=== PATIENT | male | born 1955 | race Caucasian/White ===

== ENCOUNTER 2016-11-23 21:02 | Emergency (ER) | payer BC ==
[2016-11-23 16:42] LABS: BASOPHILS 0.6 %; BASOPHILS ABSOLUTE 0.05 10/3/uL (0.0-0.16); HEMATOCRIT 42.1 % (40.0-51.0); HEMOGLOBIN 14.7 g/dL (13.6-17.8); IMMATURE GRANULOCYTES 0.2 %; IMMATURE GRANULOCYTES ABSOLUTE 0.02 10/3/uL (0.0-0.11); LYMPHOCYTES 26.2 %; LYMPHOCYTES ABSOLUTE 2.29 10/3/uL (0.67-4.30); MEAN CORPUS HGB CONC 34.9 g/dL (32.0-36.0); MEAN CORPUSCULAR HEMOGLOB 33.9 pg (26.0-34.0); MEAN CORPUSCULAR VOLUME 97.2 fL (80-100); MONOCYTES 10.1 %; MONOCYTES ABSOLUTE 0.88 10/3/uL (0.21-1.20); NEUTROPHILS 54.9 %; NEUTROPHILS ABSOLUTE 4.81 10/3/uL (2.02-8.40); PLATELET COUNT 207 10/3/uL (150-400); RBC DISTRIBUTION WIDTH 12.7 % (12.0-16.0); RED CELL COUNT 4.33 10/6/uL (4.7-6.1)
[2016-11-23 16:43] LABS: ER CBC TAT 0 Hrs 09 Mins; MANUAL DIFF NO %; WHITE BLOOD CELLS 8.8 10/3/uL (4.5-10.5)
[2016-11-23 16:49] LABS: INTERNATIONAL NORMAL RATI 1.1 UNITS (-); PROTIME (NOT ORD) 14.5 SEC (12.0-14.5)
[2016-11-23 17:01] LABS: BUN (BLOOD UREA NITROGEN) 15 MG/DL (6-23); CALCIUM, SERUM 9.4 MG/DL (8.5-10.4); CHEST PAIN PROFILE TAT 0 Hrs 27 Mins; CHLORIDE, SERUM 108 MMOL/L (96-112); CO2 (CARBON DIOXIDE) 24 MMOL/L (24-34); CREATININE 0.88 MG/DL (0.70-1.30); GFR AFRICAN AMERICAN 107 ML/MIN (>=60); GFR NON AFRICAN AMERICAN 92 ML/MIN (>=60); GLUCOSE, SERUM 102 MG/DL (60-99); SODIUM, SERUM 142 MMOL/L (135-148); TROPONIN I <0.02 NG/ML (<0.05)
[~2016-11-23 21:02] MED LIST: ACET500CAP PO; ADVAIR250 INH; ASAB PO; ASMANEX 30110 MCG IN; ATROVENTUD INH; CEFT5; COMBIVENT INH; COREG12; COREG12 PO; COREG25 PO; DUONEB INH; FENESIN IR400 MG PO; HYDROCORT12 TOP; LEVAQUIN750 MG PO; LISINOPRIL; LOP100 PO; METOPROLOL; MEXILETINE PO; MEXILETINE150 MG PO; MEXITIL 150 MG150 MG PO; MUCINEX D1 TA1 PO; MUCINEX600 MG PO; NITROQUICK0.4 MG SL; NITROSTAT0.4 MG SL; P10 PO; P20 PO; PLAVIX; PLAVIX PO; PRILOSEC OTC20 MG PO; PRIN10 PO; PRIN20 PO; PRIN5; PRIN5 PO; PROTONIX PO; PROVENTSOL INH; SPIRO25 PO; STERAPRED DS10 MG PO; SYMBICORT 160/41 INH INH; T PO; VICODINTAB PO; ZITH250 PO; ZITHROMAX500 MG PO; ZOCOR; ZOCOR20 PO; ZOCOR40 PO
[2016-11-23 21:25] LABS: TROPONIN I <0.02 NG/ML (<0.05)
[2016-11-23 21:48] LABS: INFLUENZA A SCREEN NEGATIVE (NEGATIVE); INFLUENZA B SCREEN NEGATIVE (NEGATIVE)
[2016-11-23 22:08] LABS: PROCALCITONIN < 0.05 ng/mL (<0.5)
[2017-01-12] MEDS ORDERED: COREG12 PO (16:14)
[2017-01-12] MEDS ORDERED: ZESTRIL5 MG PO (16:14)
[2017-01-12] MEDS ORDERED: SPIRO25 PO (16:14)
[2017-01-12] MEDS ORDERED: ADVAIR250 INH (16:15)
[2017-01-12] MEDS ORDERED: ASAB PO (16:15)
[2017-01-12] MEDS ORDERED: ZOCOR40 PO (16:15)
[2017-01-12] MEDS ORDERED: NITROSTAT0.4 MG SL (16:16)
[2017-01-12] MEDS ORDERED: DUONEB INH (16:16)
[2017-01-12] MEDS ORDERED: MEXITIL 150 MG150 MG PO (16:16)
[2017-01-12] MEDS ORDERED: PLAVIX PO (16:17)
[2017-01-12] MEDS ORDERED: MUCINEX600 MG PO (16:17)
== END 2016-11-23 22:31 | disposition home or self-care (01) ==
LOC: ER 21:02
PROVIDERS: Hospitalist; Nurse Practitioner
DX: J44.1 Chronic obstructive pulmonary disease with (acute) exacerbation (principal); J06.9 Acute upper respiratory infection, unspecified; I25.2 Old myocardial infarction; I25.5 Ischemic cardiomyopathy; Z87.01 Personal history of pneumonia (recurrent); Z95.810 Presence of automatic (implantable) cardiac defibrillator; Z95.5 Presence of coronary angioplasty implant and graft; Z86.73 Personal history of transient ischemic attack (TIA), and cerebral infarction without residual deficits; Z87.891 Personal history of nicotine dependence; Z88.1 Allergy status to other antibiotic agents; Z79.82 Long term (current) use of aspirin; Z79.52 Long term (current) use of systemic steroids; Z79.899 Other long term (current) drug therapy
CPT/HCPCS: 71020; 80048; 83605; 83735; 83880; 84145; 84484; 85025; 85610; 85730; 87804; 93005; 94640; 96372; 99285; J2930

== ENCOUNTER 2017-01-12 16:33 | Inpatient (IN) | payer BC ==
--- NOTE | ~2017-01-12 | EGD ---
EGD REPORT [facility] [address] [place] [address] NAME: WASHINGTON PERDOMO : 53 STATUS : ADM IN PAT#: [id number] AGE: 61 ADM/REG DATE : 01/12/17 MR#: [id number] REPORT SERV DATE: 01/16/17 DICTATED BY: MARS BATES DATE: 01/16/17 REPORT STATUS : Draft TRANSCRIBED BY: [facility] DATE: 01/16/17 [facility]oscopy Center Patient Name: Washington Perdomo Date of : 1955 Attending MD: MARS BATES MD Procedure Date No Time: 01/16/2017 Procedure: Colonoscopy Indications: Hematochezia Referring MD: RONALDO GOMEZ Medicines: Propofol per Anesthesia Complications: No immediate complications. Procedure: After I obtained informed consent, the scope was passed under direct vision. Throughout the procedure, the patient's blood pressure, pulse, and oxygen saturations were monitored continuously. The CF [id number] was introduced through the anus and advanced to the terminal ileum. The colonoscopy was performed without difficulty. The quality of the bowel preparation was excellent. Findings: Diffuse mild inflammation characterized by altered vascularity, congestion (edema), erythema and granularity was found in the descending colon. Biopsies were taken with a cold forceps for histology. Localized mild inflammation characterized by erythema, friability and granularity was found in the proximal sigmoid colon. Multiple medium-mouthed diverticula were found in the sigmoid colon. The retroflexed view of the distal rectum and anal verge was normal and showed no anal or rectal abnormalities. Impression: - Diffuse mild inflammation was found in the descending colon secondary to ischemic colitis. Biopsied. - Localized mild inflammation was found in the proximal sigmoid colon secondary to ischemic colitis. - Diverticulosis in the sigmoid colon. Recommendation: - Return patient to [facility] for ongoing care. Procedure Code(s): --- Professional --- 87937, Colonoscopy, flexible, proximal to splenic flexure; with biopsy, single or multiple Diagnosis Code(s): --- Professional --- K55.9, Vascular disorder of intestine, unspecified K57.30, Diverticulosis of large intestine without perforation or abscess without bleeding EGD REPORT [facility] [address] [place], [place] [address]josh [facility] [place]. [address] NAME: WASHINGTON PERDOMO : [birth year] STATUS : ADM IN [facility]#: [id number] AGE: 61 ADM/REG DATE : 01/12/17 MR#: [id number] REPORT SERV DATE: 01/16/17 DICTATED BY: MARS BTAES. DATE: 01/16/17 REPORT STATUS : Draft TRANSCRIBED BY: [employer] DATE: 01/16/17 Gabriela Yu CPT copyright 2013 [employer]. All rights reserved. The codes documented in this report are preliminary and upon cheese sprayer review may be revised to meet current compliance requirements. Mars Bates MD MARS BATES MD 01/16/2017 2:09 PM This report has been signed electronically. Number of Addenda: 0 Note Initiated On: 01/16/2017 1:39 PM Scope Withdrawal Time 0 hours 5 minutes 17 seconds [address] [facility] [place] [address]
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
--- NOTE | ~2017-01-12 | DS ---
Discharge Summary [facility] [address] [place]. [address] NAME: WASHINGTON PERDOMO : 53 STATUS : DIS IN PAT#: [id number] AGE: 61 ADM/REG DATE : 01/12/17 MR#: [id number] REPORT SERV DATE: 01/17/17 DICTATED BY: SAMEER LOVE DATE: 01/16/17 REPORT STATUS : Draft TRANSCRIBED BY: MODL DATE: 01/16/17 ADMISSION DATE: 01/12/2017 DISCHARGE DATE: 01/16/2017 DISCHARGE DIAGNOSES: 1. Bright red blood per rectum due to ischemic colitis. 2. Acute blood loss anemia with hemoglobin dropping from 15 to 13. 3. Gastroesophageal reflux disease. 4. Leukocytosis, initially felt to be due to infective colitis, but likely reactive. 5. Underlying ischemic cardiomyopathy with ejection fraction of 30% with AICD. 6. Hypertension. 7. Chronic obstructive pulmonary disease. 8. Sleep apnea. 9. Hyperlipidemia. 10.History of CVA. CONSULTANTS: Dr. Can of GI. PROCEDURES: Colonoscopy performed today, 01/16/2017 showed findings consistent with ischemic colitis. For details, please refer to the formal colonoscopy report. HOSPITAL COURSE: This is a 61-year-old gentleman who was admitted to the hospital with abdominal pain and bright red blood per rectum. For details please refer to excellent H and P by Dr. Jesus. Initially, the patient was admitted with a suspicion of infective colitis and the patient was started on broad-spectrum antibiotics. Later, it was suspected that the patient was actually suffering from ischemic colitis and the antibiotics were tapered off after his procalcitonin level was found to be normal. The patient did continue to have bloody bowel movement for the first three days of the hospital stay, and his hemoglobin declined from 15 to 12.6. The patient's bright red blood per rectum did stop and the patient was symptomatically doing much better, but as the patient did have a few days of ongoing bright red blood per rectum, the patient was scheduled for a colonoscopy which he underwent today. The colonoscopy did show diffuse mild inflammation in the descending colon probably secondary to ischemic colitis. Biopsies were taken and the patient was returned to [facility]. The patient was cleared for discharge from GI standpoint and the patient himself was also eager to be discharged to home. The patient is now being discharged to home to be followed closely as an outpatient. DISCHARGE MEDICATIONS: No changes. The patient is okay to resume aspirin and Plavix once he is home. FOLLOWUP: 1. Please follow up with PCP in the next one to two weeks. 2. Please follow up with GI as instructed. 3. Please follow up with Dr. Duran, Cardiology in the next two to four weeks. Total of 25 minutes spent in coordinating this patient's discharge today. Discharge Summary [address] [address] NAME: WASHINGTON PERDOMO : 53 STATUS : DIS IN PAT#: [id number] AGE: 61 ADM/REG DATE : 01/12/17 MR#: [id number] REPORT SERV DATE: 01/17/17 DICTATED BY: SAMEER LOVE DATE: 01/16/17 REPORT STATUS : Draft TRANSCRIBED BY: MARIA ISABEL DATE: 01/16/17 Benny/MARIA ISABEL Sameer Love MD / [id number] CC: MD Ventura Govea M.D.
--- NOTE | ~2017-01-12 | CN ---
Consultation Report [facility] [address] [place]. [address] NAME: WASHINGTON PERDOMO : 53 STATUS : ADM IN PAT#: [id number] AGE: 61 ADM/REG DATE : 01/12/17 MR#: [id number] REPORT SERV DATE: 01/13/17 DICTATED BY: MARS BATES DATE: 01/13/17 REPORT STATUS : Draft TRANSCRIBED BY: [employer] DATE: 01/13/17 CONSULTATION DATE OF CONSULTATION: HISTORY OF PRESENT ILLNESS: This patient noted acute onset of lower abdominal discomfort, some diarrhea which turned bloody. Then he began just passing blood and clots. He relates and his relates that he had a similar episode of this in 2010, but those results were not on the chart. I do not recall. He does have hypertension and hyperlipidemia including coronary artery disease. He has had stents placed. He does have a history of atrial fibrillation and decreased ejection fractions, AICD placement. He has obstructive sleep apnea and has a history of using CPAP. He is not smoking now. MEDICATIONS: At home include DuoNebs, aspirin, Coreg, Plavix, lisinopril, mexiletine. CT scan showed thickening of the descending and sigmoid colon with mild stranding. PHYSICAL EXAMINATION: GENERAL: He is pleasant and cooperative. VITAL SIGNS: Blood pressure 144/77. CHEST: Clear. CARDIAC: Normal. ABDOMEN: Soft, nontender. LABORATORY WORK: White count was 17,000, now 14,000. Hemoglobin 15.8-13.7. IMPRESSION: Probable ischemic colitis involving the distal descending and sigmoid colon, seems to be improving. No signs of a severe episode. Highly unlikely to be on a nonocclusive basis. Has risk factors such as hypertension, COPD, coronary artery disease, use of antihypertensives. He seems to be improving. RECOMMENDATIONS: 1. As you are doing. Would start liquid diet. 2. May consider a colonoscopy to evaluate the colon, though it is such a typical case, I am not totally convinced that it would be absolutely necessary here. We will review old notes in the office. /MARIA ISABEL Mars Bates M.D. Consultation Report [facility] [address] [place]. [address] NAME: WASHINGTON PERDOMO : 53 STATUS : ADM IN PAT#: [id number] AGE: 61 ADM/REG DATE : 01/12/17 MR#: [id number] REPORT SERV DATE: 01/13/17 DICTATED BY: MARS BATES DATE: 01/13/17 REPORT STATUS : Draft TRANSCRIBED BY: MARIA ISABEL DATE: 01/13/17 / [id number] CC: Chaparro Echeverria M.D.
[2017-01-12 14:46] LABS: BASOPHILS 0.2 %; BASOPHILS ABSOLUTE 0.04 10/3/uL (0.0-0.16); EOSINOPHILS 0.7 %; EOSINOPHILS ABSOLUTE 0.13 10/3/uL (0.0-0.53); HEMATOCRIT 44.3 % (40.0-51.0); HEMOGLOBIN 15.8 g/dL (13.6-17.8); IMMATURE GRANULOCYTES 0.4 %; IMMATURE GRANULOCYTES ABSOLUTE 0.07 10/3/uL (0.0-0.11); LYMPHOCYTES 7.1 %; LYMPHOCYTES ABSOLUTE 1.24 10/3/uL (0.67-4.30); MANUAL DIFF NO %; MEAN CORPUS HGB CONC 35.7 g/dL (32.0-36.0); MEAN CORPUSCULAR HEMOGLOB 34.3 pg (26.0-34.0); MEAN CORPUSCULAR VOLUME 96.1 fL (80-100); MEAN PLATELET VOLUME 8.8 fL (9.2-13.0); MONOCYTES 7.9 %; MONOCYTES ABSOLUTE 1.39 10/3/uL (0.21-1.20); NEUTROPHILS 83.7 %; NEUTROPHILS ABSOLUTE 14.71 10/3/uL (2.02-8.40); PLATELET COUNT 236 10/3/uL (150-400); RBC DISTRIBUTION WIDTH 12.6 % (12.0-16.0); RED CELL COUNT 4.61 10/6/uL (4.7-6.1); WHITE BLOOD CELLS 17.6 10/3/uL (4.5-10.5)
[2017-01-12 14:53] LABS: INTERNATIONAL NORMAL RATI 1.1 UNITS (-); PARTIAL THROMBO TIME 27.5 SEC (22.5-37.2); PROTIME (NOT ORD) 13.8 SEC (12.0-14.5)
[2017-01-12 15:01] LABS: BUN (BLOOD UREA NITROGEN) 16 MG/DL (6-23); CALCIUM, SERUM 10.2 MG/DL (8.5-10.4); CHLORIDE, SERUM 105 MMOL/L (96-112); GFR AFRICAN AMERICAN 106 ML/MIN (>=60); GFR NON AFRICAN AMERICAN 91 ML/MIN (>=60); GLUCOSE, SERUM 118 MG/DL (60-99); POTASSIUM, SERUM 4.7 MMOL/L (3.5-5.3); SGOT(AST) 16 U/L (5-40); SGPT(ALT) 24 U/L (5-65); SODIUM, SERUM 139 MMOL/L (135-148); TOTAL BILIRUBIN 0.6 MG/DL (0-1.2); TOTAL PROTEIN 8.3 G/DL (6.0-8.5)
[2017-01-12 15:02] LABS: ALBUMIN 4.2 G/DL (3.5-5.0); ALKALINE PHOSPHATASE 105 U/L (45-117); CO2 (CARBON DIOXIDE) 30 MMOL/L (24-34); GLOBULIN 4.1 G/DL (2.5-4.1)
[~2017-01-12 16:33] MED LIST changes: +ZESTRIL5 MG PO
[2017-01-12 21:54] LABS: CPK 48 U/L (0-200); TROPONIN I <0.02 NG/ML (<0.05)
[2017-01-12 21:55] LABS: CK-MB 1.8 NG/ML
[2017-01-12 22:19] LABS: HEMATOCRIT 42.5 % (40.0-51.0)
[2017-01-12 22:27] LABS: PROCALCITONIN 0.06 ng/mL (<0.5)
[2017-01-13 06:33] LABS: BASOPHILS 0.1 %; BASOPHILS ABSOLUTE 0.02 10/3/uL (0.0-0.16); EOSINOPHILS 1.4 %; EOSINOPHILS ABSOLUTE 0.19 10/3/uL (0.0-0.53); HEMATOCRIT 38.9 % (40.0-51.0); HEMOGLOBIN 13.7 g/dL (13.6-17.8); IMMATURE GRANULOCYTES 0.2 %; IMMATURE GRANULOCYTES ABSOLUTE 0.03 10/3/uL (0.0-0.11); LYMPHOCYTES 14.3 %; LYMPHOCYTES ABSOLUTE 2.01 10/3/uL (0.67-4.30); MEAN CORPUS HGB CONC 35.2 g/dL (32.0-36.0); MEAN CORPUSCULAR HEMOGLOB 33.3 pg (26.0-34.0); MEAN CORPUSCULAR VOLUME 94.6 fL (80-100); MEAN PLATELET VOLUME 8.7 fL (9.2-13.0); MONOCYTES 11.7 %; MONOCYTES ABSOLUTE 1.65 10/3/uL (0.21-1.20); NEUTROPHILS 72.3 %; NEUTROPHILS ABSOLUTE 10.15 10/3/uL (2.02-8.40); PLATELET COUNT 176 10/3/uL (150-400); RBC DISTRIBUTION WIDTH 12.7 % (12.0-16.0); RED CELL COUNT 4.11 10/6/uL (4.7-6.1); WHITE BLOOD CELLS 14.1 10/3/uL (4.5-10.5)
[2017-01-13 06:34] LABS: MANUAL DIFF NO %
[2017-01-13 06:48] LABS: CHLORIDE, SERUM 106 MMOL/L (96-112); CO2 (CARBON DIOXIDE) 28 MMOL/L (24-34); CREATININE 0.87 MG/DL (0.70-1.30); GFR AFRICAN AMERICAN 107 ML/MIN (>=60); GFR NON AFRICAN AMERICAN 92 ML/MIN (>=60); GLUCOSE, SERUM 119 MG/DL (60-99); PHOSPHORUS, SERUM 2.9 MG/DL (2.5-4.5); POTASSIUM, SERUM 3.9 MMOL/L (3.5-5.3); SODIUM, SERUM 141 MMOL/L (135-148)
[2017-01-13 06:49] LABS: ALBUMIN 3.3 G/DL (3.5-5.0); BUN (BLOOD UREA NITROGEN) 9 MG/DL (6-23); CALCIUM, SERUM 9.2 MG/DL (8.5-10.4)
[2017-01-14 04:41] LABS: BASOPHILS 0.2 %; BASOPHILS ABSOLUTE 0.03 10/3/uL (0.0-0.16); EOSINOPHILS 3.7 %; EOSINOPHILS ABSOLUTE 0.45 10/3/uL (0.0-0.53); HEMATOCRIT 37.9 % (40.0-51.0); HEMOGLOBIN 13.2 g/dL (13.6-17.8); IMMATURE GRANULOCYTES 0.2 %; IMMATURE GRANULOCYTES ABSOLUTE 0.03 10/3/uL (0.0-0.11); LYMPHOCYTES 18.4 %; LYMPHOCYTES ABSOLUTE 2.21 10/3/uL (0.67-4.30); MEAN CORPUS HGB CONC 34.8 g/dL (32.0-36.0); MEAN CORPUSCULAR HEMOGLOB 33.6 pg (26.0-34.0); MEAN CORPUSCULAR VOLUME 96.4 fL (80-100); MEAN PLATELET VOLUME 8.8 fL (9.2-13.0); MONOCYTES 11.3 %; MONOCYTES ABSOLUTE 1.36 10/3/uL (0.21-1.20); NEUTROPHILS 66.2 %; NEUTROPHILS ABSOLUTE 7.93 10/3/uL (2.02-8.40); PLATELET COUNT 171 10/3/uL (150-400); RBC DISTRIBUTION WIDTH 12.5 % (12.0-16.0); RED CELL COUNT 3.93 10/6/uL (4.7-6.1)
[2017-01-14 04:42] LABS: MANUAL DIFF NO %
[2017-01-14 04:56] LABS: BUN (BLOOD UREA NITROGEN) 7 MG/DL (6-23); CALCIUM, SERUM 9.3 MG/DL (8.5-10.4); CHLORIDE, SERUM 109 MMOL/L (96-112); CO2 (CARBON DIOXIDE) 25 MMOL/L (24-34); CREATININE 0.83 MG/DL (0.70-1.30); GFR AFRICAN AMERICAN 109 ML/MIN (>=60); GFR NON AFRICAN AMERICAN 94 ML/MIN (>=60); GLUCOSE, SERUM 97 MG/DL (60-99); POTASSIUM, SERUM 3.6 MMOL/L (3.5-5.3); SODIUM, SERUM 142 MMOL/L (135-148)
[2017-01-15 05:15] LABS: BASOPHILS 0.5 %; BASOPHILS ABSOLUTE 0.05 10/3/uL (0.0-0.16); EOSINOPHILS 5.8 %; EOSINOPHILS ABSOLUTE 0.55 10/3/uL (0.0-0.53); HEMATOCRIT 36.8 % (40.0-51.0); HEMOGLOBIN 13.2 g/dL (13.6-17.8); IMMATURE GRANULOCYTES 0.2 %; IMMATURE GRANULOCYTES ABSOLUTE 0.02 10/3/uL (0.0-0.11); LYMPHOCYTES ABSOLUTE 2.08 10/3/uL (0.67-4.30); MEAN CORPUS HGB CONC 35.9 g/dL (32.0-36.0); MEAN CORPUSCULAR HEMOGLOB 34.6 pg (26.0-34.0); MEAN CORPUSCULAR VOLUME 96.3 fL (80-100); MEAN PLATELET VOLUME 9.1 fL (9.2-13.0); MONOCYTES 11.2 %; MONOCYTES ABSOLUTE 1.06 10/3/uL (0.21-1.20); NEUTROPHILS 60.3 %; PLATELET COUNT 182 10/3/uL (150-400); RBC DISTRIBUTION WIDTH 12.6 % (12.0-16.0); RED CELL COUNT 3.82 10/6/uL (4.7-6.1); WHITE BLOOD CELLS 9.5 10/3/uL (4.5-10.5)
[2017-01-15 05:17] LABS: MANUAL DIFF NO %
[2017-01-15 05:34] LABS: BUN (BLOOD UREA NITROGEN) 8 MG/DL (6-23); CALCIUM, SERUM 9.7 MG/DL (8.5-10.4); CHLORIDE, SERUM 109 MMOL/L (96-112); CO2 (CARBON DIOXIDE) 25 MMOL/L (24-34); CREATININE 0.77 MG/DL (0.70-1.30); GFR AFRICAN AMERICAN 113 ML/MIN (>=60); GFR NON AFRICAN AMERICAN 97 ML/MIN (>=60); GLUCOSE, SERUM 92 MG/DL (60-99); POTASSIUM, SERUM 3.8 MMOL/L (3.5-5.3); SODIUM, SERUM 141 MMOL/L (135-148)
[2017-01-16 03:43] LABS: BASOPHILS 0.4 %; BASOPHILS ABSOLUTE 0.03 10/3/uL (0.0-0.16); EOSINOPHILS 4.9 %; HEMATOCRIT 35.4 % (40.0-51.0); HEMOGLOBIN 12.6 g/dL (13.6-17.8); IMMATURE GRANULOCYTES 0.4 %; IMMATURE GRANULOCYTES ABSOLUTE 0.03 10/3/uL (0.0-0.11); LYMPHOCYTES 24.3 %; LYMPHOCYTES ABSOLUTE 1.99 10/3/uL (0.67-4.30); MEAN CORPUS HGB CONC 35.6 g/dL (32.0-36.0); MEAN CORPUSCULAR HEMOGLOB 33.8 pg (26.0-34.0); MEAN CORPUSCULAR VOLUME 94.9 fL (80-100); MONOCYTES 8.8 %; MONOCYTES ABSOLUTE 0.72 10/3/uL (0.21-1.20); NEUTROPHILS 61.2 %; NEUTROPHILS ABSOLUTE 5.02 10/3/uL (2.02-8.40); PLATELET COUNT 181 10/3/uL (150-400); RBC DISTRIBUTION WIDTH 12.4 % (12.0-16.0); RED CELL COUNT 3.73 10/6/uL (4.7-6.1); WHITE BLOOD CELLS 8.2 10/3/uL (4.5-10.5)
[2017-01-16 03:48] LABS: MANUAL DIFF NO %
== END 2017-01-16 17:18 | disposition home or self-care (01) | DRG 394 ==
LOC: ER 16:33 → 6NO 18:46
PROVIDERS: Emergency Medicine; Internal Medicine; Internal Medicine Gastroenterology
PROC: 0DJD8ZZ Inspection of Lower Intestinal Tract, Via Natural or Artificial Opening Endoscopic (ICD-10-PCS; principal; 2017-01-16 13:47)
DX: K55.9 Vascular disorder of intestine, unspecified (principal); D62 Acute posthemorrhagic anemia; I11.0 Hypertensive heart disease with heart failure; I50.22 Chronic systolic (congestive) heart failure; G47.33 Obstructive sleep apnea (adult) (pediatric); I25.5 Ischemic cardiomyopathy; K57.30 Diverticulosis of large intestine without perforation or abscess without bleeding; I25.10 Atherosclerotic heart disease of native coronary artery without angina pectoris; E78.2 Mixed hyperlipidemia; J44.9 Chronic obstructive pulmonary disease, unspecified; K21.0 Gastro-esophageal reflux disease with esophagitis; Z95.810 Presence of automatic (implantable) cardiac defibrillator; Z79.02 Long term (current) use of antithrombotics/antiplatelets; Z95.5 Presence of coronary angioplasty implant and graft; Z87.891 Personal history of nicotine dependence; Z88.3 Allergy status to other anti-infective agents; Z88.8 Allergy status to other drugs, medicaments and biological substances; Z86.73 Personal history of transient ischemic attack (TIA), and cerebral infarction without residual deficits
CPT/HCPCS: 36415; 74176; 80048; 80053; 80069; 82550; 82553; 83605; 83735; 84100; 84145; 84443; 84484; 85014; 85018; 85025; 85610; 85730; 86850; 86900; 86901; 87040; 88305; 93005; 94640; 96365; 96367; 99285; A9270-GY; C9113; J1956; J2370